=== PATIENT | female | born 1940 | race Caucasian/White ===

== ENCOUNTER 2019-08-25 | Emergency (ER) | payer OTHER, MEDICARE ==
[~2019-08-25] MED LIST: BACTRIM DS1 TAB PO; CIPROFLOXACN500 MG PO; ULTRAM50 MG PO
[2019-08-25 11:49] LABS: HEMATOCRIT 36.8 % (37.0-47.0); HEMOGLOBIN 12.2 g/dl (12.0-16.0); IMMATURE GRANULOCYTES 0.3 % (0.0-5.0); MEAN CELL VOLUME 99.2 fL CALC (80.0-100.0); MEAN CORPUSCULAR HGB 32.9 pG CALC (26.0-32.0); MEAN CORPUSCULAR HGB CONC 33.2 g/L CALC (32.0-36.0); NEUT# 4.22 thou/uL (2.00-7.15); RED BLOOD COUNT 3.71 mill/uL (4.20-5.60); RED CELL DISTRI WIDTH 12.5 % (11.5-15.5)
[2019-08-25 12:06] LABS: ALBUMIN 4.1 g/dL (3.2-5.0); ALKALINE PHOSPHATASE 59 u/l (38-126); ANION GAP 13 (6-22 (CALC)); BILIRUBIN, TOTAL 0.5 mg/dL (0.0-1.4); BUN 36 mg/dL (8-23); BUN/CREATININE RATIO 42 (12-20 (CALC)); CARBON DIOXIDE 27 mmol/l (22-30); CHLORIDE 102 mmol/l (95-108); CREATININE 0.9 mg/dL (0.5-1.0); GFR > 60 ML/MIN (>=60 (CALC)); GFR FOR AFR.AMER. > 60 ML/MIN (>=60 (CALC)); LIPASE 143 u/l (23-300); POTASSIUM 4.6 mmol/l (3.5-5.1); SGOT/AST 36 u/l (9-36); SODIUM 137 mmol/l (137-146)
[2019-08-25] MEDS ORDERED: VOLTAREN1%GEL TOP (13:55)
== END 2019-08-25 14:21 | disposition home or self-care (01) | DRG 605 ==
PROVIDERS: Family Medicine
DX: S30.1XXA Contusion of abdominal wall, initial encounter (principal); S80.02XA Contusion of left knee, initial encounter; R07.81 Pleurodynia; M79.672 Pain in left foot; M79.641 Pain in right hand; E11.9 Type 2 diabetes mellitus without complications; I10 Essential (primary) hypertension; V49.50XA Passenger injured in collision with unspecified motor vehicles in traffic accident, initial encounter
CPT/HCPCS: Q9967